=== PATIENT | female | born 1970 | race African-American/Black ===

== ENCOUNTER 2022-02-14 08:44 | Day surgery (SDC) | payer OTHER ==
[~2022-02-14] VITALS: Ht 167.6 cm; Wt 150.0 kg
[~2022-02-14 08:44] MED LIST: ALBU8HFA IH; BECL10.62 IH; CETI10TA58 PO; CHOL500045 PO; FERR-72 PO; HYDR25TA PO; LINA145C PO; LISI20TA24 PO; SODIUM CHLORIDE 0.9% 1,000 ML IV ONE; SODIUM CHLORIDE 0.9% 1,000 ML ONE; [UNRECOGNIZED DRUG - CODE] IM
[2022-02-14 10:43] LABS: COVID AG,FIA SOURCE NASAL SWAB
[2022-02-14] MEDS ORDERED: LIDOCAINE/PF 2% 5 ML VIAL IM ONE (12:00)
[2022-02-14] MEDS ORDERED: PROPOFOL 1% 20 ML VIAL IVP ONE (12:00)
[2022-02-14] MEDS ORDERED: OXYGEN THERAPY IH SCH (20:00)
== END 2022-02-14 13:40 | disposition home or self-care (01) ==
LOC: SURGERY 08:44
PROVIDERS: ATTEND Specialist
DX: K64.8 Other hemorrhoids (principal); Z20.822 Contact with and (suspected) exposure to COVID-19; J45.909 Unspecified asthma, uncomplicated; I10 Essential (primary) hypertension; D64.9 Anemia, unspecified; Z90.49 Acquired absence of other specified parts of digestive tract; Z98.890 Other specified postprocedural states; Z88.8 Allergy status to other drugs, medicaments and biological substances; Z79.899 Other long term (current) drug therapy
CPT/HCPCS: 45398; 87426; J2704; J3490; J7030; C9803